=== PATIENT | female | born 1960 | race Caucasian/White ===

== ENCOUNTER 2023-05-23 10:08 | Outpatient (CLI) | payer OTHER, SELFPAY | END 2023-05-23 10:09 | disposition home or self-care (01) | PROVIDERS: PCP Family Medicine; Visit Provider Family Medicine | DX: Z00.00 Encounter for general adult medical examination without abnormal findings (principal); R73.03 Prediabetes; R53.83 Other fatigue; L65.9 Nonscarring hair loss, unspecified; E66.01 Morbid (severe) obesity due to excess calories | CPT/HCPCS: 80053; 80061; 82306; 82607; 82728; 84443 ==

== ENCOUNTER 2024-07-27 12:30 | Outpatient (CLI) | payer OTHER, SELFPAY ==
[2024-08-01 12:11] LABS: HPV Source Endocervical; HPV, High Risk by TMA Not Detected
== END 2024-07-27 12:31 | disposition home or self-care (01) ==
PROVIDERS: Visit Provider Family Medicine
DX: R03.0 Elevated blood-pressure reading, without diagnosis of hypertension (principal); Z12.4 Encounter for screening for malignant neoplasm of cervix; Z13.220 Encounter for screening for lipoid disorders
CPT/HCPCS: 80053; 80061; 87624; 87625; 88141; 88142

== ENCOUNTER 2024-11-22 11:48 | Outpatient (CLI) | payer OTHER, SELFPAY ==
[2024-11-22 20:07] LABS: Bacterial Vaginosis* Negative (Negative); Candida glab/krus NOT DETECTED (No Detected); Candida species NOT DETECTED (No Detected); Trichomonas vaginalis NOT DETECTED (No Detected)
== END 2024-11-22 11:49 | disposition home or self-care (01) ==
LOC: NFLDREF 11:50
PROVIDERS: PCP Family Medicine; Visit Provider Obstetrics & Gynecology
DX: L29.2 Pruritus vulvae (principal)
CPT/HCPCS: 81513; 87481; 87661